=== PATIENT | male | born 1985 | race African-American/Black ===

== ENCOUNTER 2020-09-25 13:43 | Emergency (ER) | payer OTHER ==
[~2020-09-25] VITALS: Ht 165.1 cm; Wt 131.5 kg
[2020-09-25 14:28] LABS: URINE BLOOD TRACE (Negative); URINE CLARITY CLEAR; URINE COLOR YELLOW; URINE GLUCOSE-RANDOM* NEGATIVE (Negative); URINE KETONES 1+ (Negative); URINE LEUKOCYTES-REFLEX NEGATIVE (Negative); URINE NITRITE-REFLEX NEGATIVE (Negative); URINE PROTEIN (DIPSTICK) TRACE (Negative); URINE SPECIFIC GRAVITY 1.015 (1.005-1.035)
[2020-09-25 14:33] LABS: ICTOTEST (BILI CONFIRMATORY) Negative (Negative); URINE BILIRUBIN NEGATIVE (Negative)
[2020-09-25 14:35] LABS: AMP/METHAMP Negative (Negative); BARBITURATES Negative (Negative); BENZODIAZEPINES Negative (Negative); COCAINE Negative (Negative); METHADONE Negative (Negative); OPIATES Negative (Negative); PCP Negative (Negative)
[2020-09-25 15:33] LABS: ABSOLUTE NEUTROPHILS 6.8 thou/uL (1.4-8.2); BASOPHILS 0.8 % (0.0-2.0); EOSINOPHILS 0.1 % (0.0-3.0); HEMATOCRIT 41.3 % (42.0-52.0); LYMPHOCYTES 14.6 % (24.0-44.0); MCH 29.8 pg (26.0-34.0); MCHC 33.9 g/dL (28.0-37.0); MCV 87.9 fL (80.0-100.0); MONOCYTES 6.8 % (1.0-8.0); PLATELET COUNT 201 thou/uL (150-400); POLYS 77.7 % (36.0-66.0); RDW 13.8 % (10.5-14.5); WBC 8.8 thou/uL (4.0-11.0)
[2020-09-25 15:44] LABS: ANION GAP 8 mmol/L (7-16); BUN 9 mg/dL (7-18); CALCIUM 9.1 mg/dL (8.5-10.1); CHLORIDE 101 mmol/L (98-107); CO2 31 mmol/L (21-32); GLUCOSE 108 mg/dL (74-106); POTASSIUM 3.4 mmol/L (3.5-5.1); SODIUM 140 mmol/L (136-145)
[2020-09-25 15:55] LABS: LIPASE 43 U/L (73-393); SGOT 39 U/L (15-37); SGPT 21 U/L (30-65); TOTAL BILIRUBIN 0.8 mg/dL (0.2-1.0); TOTAL PROTEIN 7.7 g/dL (6.4-8.2); TROPONIN-I <0.06 ng/mL (<0.06)
[2020-09-25] MEDS ORDERED: PRILOSEC OTC20 MG PO (16:27)
[2020-09-25 16:55] VITALS: BP 121/86
--- NOTE | 2020-09-26 10:38 | EKG ---
[facility] [place] [address] ELECTROCARDIOGRAM REPORT Name: JARED MERCEDES Room #: DEP [facility]#: [id number] Admission: 09/25/20 Attend Phys: Discharge: 09/25/20 Date of : 83 Report #: [id number] THIS REPORT FOR: cc: FAM - No family physician/PCP FAM - No family physician/PCP Edgardo Diggs MD [facility] ~ THIS REPORT FOR: //name// [facility] ED Test Date: 2020-09-25 Test Time: 14:30:24 Pat Name: JARED MERCEDES Department: Room: Gender: [employer]: PIA : 1985 Requested By: Sergio Ceja Order Number: [id number] MD: Edgardo Diggs Measurements Intervals [place] Rate: 60 P: 28 [place]: 190 QRS: 38 QRSD: 95 T: -13 QT: 395 QTc: 395 Interpretive Statements Sinus rhythm Borderline T abnormalities, inferior leads Minimal ST elevation, anterior leads No previous ECG available for comparison Electronically Signed On 09-26-2020 10:38:16 INTERVENTIONAL PHYSIATRIST by Edgardo Diggs [email or web address] <ELECTRONICALLY SIGNED> By: Edgardo Diggs MD, FACC 09/26/20 1038 1430 1430 Edgardo Diggs MD, [facility] /EPI
== END 2020-09-25 17:00 | disposition home or self-care (01) ==
LOC: ER 13:43
PROVIDERS: Emergency Medicine
DX: K59.00 Constipation, unspecified (principal); R11.2 Nausea with vomiting, unspecified; R10.30 Lower abdominal pain, unspecified; F15.90 Other stimulant use, unspecified, uncomplicated; I10 Essential (primary) hypertension